=== PATIENT | female | born 1970 | race Caucasian/White ===

== ENCOUNTER 2022-01-19 07:33 | Day surgery (SDC) | payer MEDICAID, OTHER ==
[~2022-01-19] VITALS: Ht 165.1 cm; Wt 76.2 kg
[2022-01-19] MEDS ORDERED: BUPIVACAINE /PF 0.25% 30 ML VIAL INJ ONE (07:34)
[2022-01-19] MEDS ORDERED: methylPREDNISolone ACETATE 40 MG/ML IM ONE (07:34)
[2022-01-19] MEDS ORDERED: IOPAMIDOL 50 ML VIAL IV ONE (07:34)
[2022-01-19] MEDS ORDERED: fentaNYL CITRATE/PF 100 MCG/2 ML AMP ONE (08:12)
[2022-01-19] MEDS ORDERED: MIDAZOLAM HCL 5 MG/5 ML VIAL ONE (08:12)
[2022-01-19] MEDS ORDERED: DIPHENHYDRAMINE INJ 50 MG/ML VIAL ONE (08:12)
[2022-01-19] MEDS ORDERED: ONDANSETRON HCL 4 MG/2 ML VIAL ONE (10:35)
[2022-01-19 13:59] VITALS: BP_SYST 112
== END 2022-01-19 12:50 | disposition home or self-care (01) ==
LOC: SDS 07:33 → SMU 07:36 → SDS 12:50
PROVIDERS: ATTEND Internal Medicine
DX: M51.16 Intervertebral disc disorders with radiculopathy, lumbar region (principal); M47.26 Other spondylosis with radiculopathy, lumbar region; I10 Essential (primary) hypertension; E11.9 Type 2 diabetes mellitus without complications; Z20.822 Contact with and (suspected) exposure to COVID-19; Z88.1 Allergy status to other antibiotic agents; Z79.899 Other long term (current) drug therapy
CPT/HCPCS: 62323; 87426; 36415; J3490; J1200; J1030; J2250; J2405; J3010; Q9967; 76000

== ENCOUNTER 2022-05-18 08:50 | Day surgery (SDC) | payer OTHER ==
[~2022-05-18] VITALS: Ht 165.1 cm; Wt 72.2 kg
[2022-05-18] MEDS ORDERED: NORMAL SALINE 10 ML VIAL ONE (12:00)
[2022-05-18] MEDS ORDERED: ISOVUE-300 (IOPAMIDOL) 100 ML INFUS..BTL IV ONE (12:00)
[2022-05-18] MEDS ORDERED: LIDOCAINE 2%, 20 ML MDV ONE (12:00)
[2022-05-18] MEDS ORDERED: methylPREDNISolone ACETATE 40 MG/ML ONE (12:00)
[2022-05-18] MEDS ORDERED: DIPHENHYDRAMINE INJ 50 MG/ML VIAL ONE (13:05)
[2022-05-18] MEDS ORDERED: MIDAZOLAM HCL 5 MG/5 ML VIAL ONE (13:05)
[2022-05-18] MEDS ORDERED: fentaNYL CITRATE/PF 100 MCG/2 ML AMP ONE (13:06)
[2022-05-18 14:47] VITALS: BP_SYST 124
== END 2022-05-18 14:25 | disposition home or self-care (01) ==
LOC: SDS 08:50 → SMU 08:50 → SDS 14:25
PROVIDERS: ATTEND Internal Medicine
DX: M51.16 Intervertebral disc disorders with radiculopathy, lumbar region (principal); I10 Essential (primary) hypertension; E11.9 Type 2 diabetes mellitus without complications; Z88.1 Allergy status to other antibiotic agents; Z90.710 Acquired absence of both cervix and uterus; Z79.899 Other long term (current) drug therapy; Z20.822 Contact with and (suspected) exposure to COVID-19
CPT/HCPCS: 62323; 87426; 82962; 36415; J1200; J2001; J1030; J2250; J3010; Q9967; 76000

== ENCOUNTER 2022-08-17 07:07 | Day surgery (SDC) | payer OTHER ==
[~2022-08-17] VITALS: Ht 165.1 cm; Wt 74.4 kg
[2022-08-17] MEDS ORDERED: MIDAZOLAM HCL 5 MG/5 ML VIAL ONE (08:35)
[2022-08-17] MEDS ORDERED: LIDOCAINE 2%, 20 ML MDV ONE (08:42)
[2022-08-17] MEDS ORDERED: NORMAL SALINE 10 ML VIAL ONE (08:42)
[2022-08-17] MEDS ORDERED: methylPREDNISolone ACETATE 40 MG/ML ONE (08:42)
[2022-08-17] MEDS ORDERED: fentaNYL CITRATE/PF 100 MCG/2 ML AMP ONE (08:42)
[2022-08-17] MEDS ORDERED: IOPAMIDOL 50 ML VIAL IV ONE (08:42)
[2022-08-17] MEDS ORDERED: DIPHENHYDRAMINE INJ 50 MG/ML VIAL ONE (08:43)
[2022-08-17] MEDS ORDERED: ONDANSETRON HCL 4 MG/2 ML VIAL ONE (09:34)
[2022-08-17 16:59] VITALS: BP_SYST 133
== END 2022-08-17 10:36 | disposition home or self-care (01) ==
LOC: SDS 07:07 → SMU 07:09 → SDS 10:36
PROVIDERS: ATTEND Internal Medicine
DX: M51.16 Intervertebral disc disorders with radiculopathy, lumbar region (principal); M47.26 Other spondylosis with radiculopathy, lumbar region; I10 Essential (primary) hypertension; E11.9 Type 2 diabetes mellitus without complications; Z88.1 Allergy status to other antibiotic agents; Z79.899 Other long term (current) drug therapy; Z20.822 Contact with and (suspected) exposure to COVID-19
CPT/HCPCS: 62323; 87426; 82962; 36415; J1200; J2001; J1030; J2250; J3010; Q9967; 76000; J2405

== ENCOUNTER 2023-02-15 07:40 | Day surgery (SDC) | payer OTHER ==
[~2023-02-15] VITALS: Ht 165.1 cm; Wt 79.8 kg
[2023-02-15] MEDS ORDERED: fentaNYL CITRATE/PF 100 MCG/2 ML AMP ONE (08:31)
[2023-02-15] MEDS ORDERED: DIPHENHYDRAMINE INJ 50 MG/ML VIAL ONE (08:32)
[2023-02-15] MEDS: MIDAZOLAM HCL 5 MG/5 ML VIAL ONE ×2 (09:54→09:58)
[2023-02-15 13:16] VITALS: O2SAT 98
[2023-02-15 16:16] VITALS: BP_SYST 132; PULSE 74; RESP 16
== END 2023-02-15 10:45 | disposition home or self-care (01) ==
LOC: SDS 07:40 → SMU 07:47 → SDS 10:45
PROVIDERS: ATTEND Internal Medicine
DX: M47.26 Other spondylosis with radiculopathy, lumbar region (principal); M54.41 Lumbago with sciatica, right side; M51.9 Unspecified thoracic, thoracolumbar and lumbosacral intervertebral disc disorder; I10 Essential (primary) hypertension; E11.9 Type 2 diabetes mellitus without complications; Z88.1 Allergy status to other antibiotic agents; Z79.899 Other long term (current) drug therapy
CPT/HCPCS: 62323; 82962; J1200; J2250; J3010; 76000

== ENCOUNTER 2023-05-24 07:54 | Day surgery (SDC) | payer OTHER ==
[~2023-05-24] VITALS: Ht 165.1 cm; Wt 79.4 kg
[2023-05-24 08:15] LABS: HCG,QUAL RESULT NEGATIVE (NEGATIVE)
[2023-05-24] MEDS ORDERED: DIPHENHYDRAMINE INJ 50 MG/ML VIAL ONE (09:13)
[2023-05-24] MEDS ORDERED: ONDANSETRON HCL 4 MG/2 ML VIAL ONE (09:13)
[2023-05-24] MEDS ORDERED: fentaNYL CITRATE/PF 100 MCG/2 ML AMP ONE (09:13)
[2023-05-24] MEDS ORDERED: MIDAZOLAM HCL 5 MG/5 ML VIAL ONE (09:14)
[2023-05-24 14:00] VITALS: O2SAT 99
[2023-05-24 16:35] VITALS: BP_SYST 123; PULSE 87; RESP 16
== END 2023-05-24 10:30 | disposition home or self-care (01) ==
LOC: SDS 07:54 → SMU 07:56 → SDS 10:30
PROVIDERS: ATTEND Internal Medicine
DX: M47.26 Other spondylosis with radiculopathy, lumbar region (principal); M51.86 Other intervertebral disc disorders, lumbar region; I10 Essential (primary) hypertension; E11.9 Type 2 diabetes mellitus without complications; Z88.1 Allergy status to other antibiotic agents; M54.41 Lumbago with sciatica, right side; Z90.710 Acquired absence of both cervix and uterus; Z98.82 Breast implant status; Z79.899 Other long term (current) drug therapy
CPT/HCPCS: 62323; 84703; 82962; J2250; J3010; 76000; J1200; J2405

== ENCOUNTER 2023-08-16 07:40 | Day surgery (SDC) | payer OTHER ==
[~2023-08-16] VITALS: Ht 165.1 cm; Wt 79.4 kg
[2023-08-16] MEDS ORDERED: methylPREDNISolone ACETATE 40 MG/ML ONE (10:00)
[2023-08-16] MEDS ORDERED: IOHEXOL 300 mgI/mL, 50 mL INFUS..BTL IV ONE (10:00)
[2023-08-16] MEDS ORDERED: LIDOCAINE MPF 2% 20 MG/1 ML, 5 ML VIAL INH ONE (10:00)
[2023-08-16] MEDS ORDERED: NORMAL SALINE 10 ML VIAL ONE (10:00)
[2023-08-16] MEDS ORDERED: BUPIVACAINE /PF 0.25% 30 ML VIAL INJ ONE (10:00)
[2023-08-16] MEDS ORDERED: DIPHENHYDRAMINE INJ 50 MG/ML VIAL ONE (10:01)
[2023-08-16] MEDS ORDERED: fentaNYL CITRATE/PF 100 MCG/2 ML AMP ONE (10:01)
[2023-08-16] MEDS: MIDAZOLAM HCL 5 MG/5 ML VIAL ONE (10:15)
[2023-08-16 12:45] VITALS: O2SAT 97
[2023-08-16 15:43] VITALS: BP_SYST 136; PULSE 77; RESP 17
== END 2023-08-16 11:45 | disposition home or self-care (01) ==
LOC: SDS 07:40 → SMU 07:46 → SDS 11:45
PROVIDERS: ATTEND Internal Medicine
DX: M51.16 Intervertebral disc disorders with radiculopathy, lumbar region (principal); M79.10 Myalgia, unspecified site; M47.816 Spondylosis without myelopathy or radiculopathy, lumbar region; I10 Essential (primary) hypertension; E11.9 Type 2 diabetes mellitus without complications; Z90.710 Acquired absence of both cervix and uterus; Z98.890 Other specified postprocedural states; Z88.1 Allergy status to other antibiotic agents; Z79.899 Other long term (current) drug therapy
CPT/HCPCS: 62323; 82948; J3490; J1030; J2250; J3010; Q9967; 76000; J1200

== ENCOUNTER 2024-01-17 07:11 | Day surgery (SDC) | payer OTHER ==
[~2024-01-17] VITALS: Ht 165.1 cm; Wt 77.1 kg
[2024-01-17] MEDS: MIDAZOLAM HCL 5 MG/5 ML VIAL ONE (09:12)
[2024-01-17] MEDS: MIDAZOLAM HCL 5 MG/5 ML VIAL IVP ONE ×2 (09:12→09:15)
[2024-01-17] MEDS: fentaNYL CITRATE/PF 100 MCG/2 ML AMP IVP ONE (09:14)
[2024-01-17] MEDS: fentaNYL CITRATE/PF 100 MCG/2 ML AMP ONE (09:14)
[2024-01-17 09:18] VITALS: O2SAT 99
[2024-01-17] MEDS ORDERED: IOHEXOL 300 mgI/mL, 50 mL INFUS..BTL IV ONE (10:00)
[2024-01-17] MEDS ORDERED: NORMAL SALINE 10 ML VIAL ONE (10:00)
[2024-01-17] MEDS ORDERED: LIDOCAINE MPF 2% 20 MG/1 ML, 5 ML VIAL INH ONE (10:00)
[2024-01-17] MEDS ORDERED: DEXAMETHASONE SOD PHOSPHATE 4 MG/ML VIAL ONE (10:00)
[2024-01-17 12:08] VITALS: BP_SYST 132; PULSE 82; RESP 18
== END 2024-01-17 10:00 | disposition home or self-care (01) ==
LOC: SMU 07:11 → SDS 07:11
PROVIDERS: ATTEND Internal Medicine
DX: M51.16 Intervertebral disc disorders with radiculopathy, lumbar region (principal); I10 Essential (primary) hypertension; E11.9 Type 2 diabetes mellitus without complications; Z90.710 Acquired absence of both cervix and uterus; Z98.890 Other specified postprocedural states; Z88.1 Allergy status to other antibiotic agents; Z79.899 Other long term (current) drug therapy
CPT/HCPCS: 64483; 82948; J1100; J2250; J3010; Q9967; 76000